=== PATIENT | female | born 1965 | race African-American/Black ===

== ENCOUNTER 2020-09-26 12:57 | Emergency (ER) | payer OTHER ==
[~2020-09-26] VITALS: Ht 167.6 cm; Wt 68.2 kg
[2020-09-26] MEDS ORDERED: PHEN20EL10 PO (13:04)
[2020-09-26 13:46] VITALS: BP 107/74
== END 2020-09-26 13:53 | disposition home or self-care (01) ==
LOC: EMS 13:08
DX: S40.021A Contusion of right upper arm, initial encounter (principal); J45.909 Unspecified asthma, uncomplicated; X58.XXXA Exposure to other specified factors, initial encounter; Y93.89 Activity, other specified; Y92.89 Other specified places as the place of occurrence of the external cause; Y99.8 Other external cause status
CPT/HCPCS: 99281; 99283

== ENCOUNTER 2021-06-03 09:12 | Emergency (ER) | payer OTHER ==
[~2021-06-03] VITALS: Ht 167.6 cm; Wt 63.6 kg
[~2021-06-03 09:12] MED LIST: PHEN20EL10 PO
[2021-06-03 09:32] VITALS: BP 126/71
[2021-06-03] MEDS ORDERED: PHEN30TA50 PO (10:47)
== END 2021-06-03 15:41 | disposition left against medical advice (07) ==
LOC: EMS 09:24
DX: R06.02 Shortness of breath (principal); Z53.21 Procedure and treatment not carried out due to patient leaving prior to being seen by health care provider